=== PATIENT | female | born 1945 | race African-American/Black ===

== ENCOUNTER 2021-07-08 12:40 | Inpatient (IN) | payer MEDICARE, BC ==
[~2021-07-08] VITALS: Ht 157.5 cm; Wt 54.0 kg
--- NOTE | 2021-07-08 12:48 | NUR ---
The patient is bibra99 frm home, found by sister lethargic w noted empty ambien bottle. The patient verbalizes SI, w/ previous attempt. The patient denies HI. In room air and denies SOB. Respiration regular and unlabored. Attached to the monitor. Sitter at the bedside. Will continue to monitor the patient.
[2021-07-08] MEDS ORDERED: IV NS 0.9% 1,000 ML BAG IV ONE (13:00)
[2021-07-08] MEDS ORDERED: EZET10TA32 PO (13:32)
[2021-07-08] MEDS ORDERED: AZEL137S7 (13:32)
[2021-07-08] MEDS ORDERED: TRAZ-182 PO (13:32)
[2021-07-08] MEDS ORDERED: DENO60DI PO (13:32)
[2021-07-08] MEDS ORDERED: HYDR-3976 PO (13:32)
[2021-07-08] MEDS ORDERED: MIRT-121 PO (13:32)
[2021-07-08] MEDS ORDERED: ZOLP5TAB2 PO (13:32)
[2021-07-08] MEDS ORDERED: QUET25TA PO (13:32)
[2021-07-08] MEDS ORDERED: GABA-532 PO (13:32)
[2021-07-08] MEDS ORDERED: ZOLP10TA2 PO (13:32)
[2021-07-08] MEDS ORDERED: METO25TA4 PO (13:32)
[2021-07-08] MEDS ORDERED: ALPR0.5T8 PO (13:32)
[2021-07-08] MEDS ORDERED: MECL-159 PO (13:32)
[2021-07-08 13:44] LABS: BASOPHILS % (AUTO) 0.4 % (0.0-2.0); EOSINOPHILS % (AUTO) 0.1 % (0.0-6.0); HEMATOCRIT 37 % (33-45); HEMOGLOBIN 12.4 g/dL (11.5-14.8); LYMPHOCYTES # (AUTO) 0.9 K/uL (0.8-4.8); MEAN CORPUSCULAR HGB CONC 34 g/dl (31.0-36.0); MEAN CORPUSCULAR VOLUME 90 fL (82-100); MONOCYTES # (AUTO) 0.4 K/uL (0.1-1.30); MONOCYTES % (AUTO) 5.7 % (2.0-12.0); NEUTROPHILS # (AUTO) 5.4 K/uL (1.8-8.9); NEUTROPHILS % (AUTO) 79.8 % (43.0-81.0); PLATELET COUNT (AUTO) 257 K/uL (150-450); RED BLOOD CELL COUNT(AUTO) 4.07 MIL/uL (4.0-5.2); WHITE BLOOD COUNT (AUTO) 6.8 K/uL (4.3-11.0)
--- NOTE | 2021-07-08 14:16 | NUR ---
CONTACTED POISON CONTROLL. SPOKE TO ELYSIA. HIS RECOMMENDATION IS SUPPORTIVE CARE, LOTS OF FLUIDS, MONITOR 4-6 HOURS, MONITOR RESPITARION, INTUBATE IF NEEDED. RUN LABS FOR ALCOHOL, TYLENOL.
[2021-07-08 14:43] LABS: CALCIUM, SERUM 8.7 mg/dL (8.5-10.1); CARBON DIOXIDE 26 mmol/L (21-32); CHLORIDE 108 mmol/L (98-107); CREATININE 1.2 mg/dL (0.6-1.3); GLUCOSE 108 mg/dL (74-106); POTASSIUM 4.4 mmol/L (3.5-5.1); SODIUM SERUM 140 mmol/L (136-145); UREA NITROGEN, BLOOD 24 mg/dL (7-18)
[2021-07-08 14:49] LABS: ACETAMINOPHEN 2 ug/ml (10-30); ALANINE AMINOTRANSFERASE 36 U/L (12-78); ALBUMIN 2.8 g/dL (3.4-5.0); ALKALINE PHOSPHATASE 95 U/L (46-116); ASPARTATE AMINOTRANSFERASE 18 U/L (15-37); BILIRUBIN,DIRECT 0.1 mg/dL (0.0-0.2); BILIRUBIN,TOTAL 0.5 mg/dL (0.2-1.0); TOTAL PROTEIN, SERUM 5.6 g/dL (6.4-8.2)
[2021-07-08 14:55] LABS: ALCOHOL, BLOOD < 3 mg/dL (0-0)
--- NOTE | 2021-07-08 18:15 | NUR ---
THE PATIENT HANDED HER SILVER COLOR WATCH, SILVER COLOR BRACELET AND SILVER COLOR 2 RINGS TO HER DAUGHTER OSMAN. THE DAUGHTER OSMAN HANDED TO THE PATIENT THE PATIENT`S IPHONE.
[2021-07-08] MEDS ORDERED: IV NS 0.9% 1,000 ML IV ONE (19:00)
--- NOTE | 2021-07-08 22:32 | NUR ---
CALLED [facility] FOR PSYCH EVAL. PT AWAKE, ALERT AND RESPONSIVE AT THIS TIME
--- NOTE | 2021-07-09 00:04 | NUR ---
PT PLACED OF 5151 HOLD FOR DTS / SI BY SALTY [facility] MAINTENANCE WELDER /ROLLER SKATE ASSEMBLER 07/09/20 0004. ATTEMPT TO SI BY TAKING BOTTLE OF ATIVAN
--- NOTE | 2021-07-09 00:18 | NUR ---
COVID ANTIGEN SWAB COLLECTED AND SENT TO LAB
--- NOTE | 2021-07-09 01:16 | NUR ---
REPORT GIVEN TO [facility] GPS RN FOR MAYRA
--- NOTE | 2021-07-09 01:35 | NUR ---
IV removed. Catheter intact and site benign. Pressure and 4x4 applied to site. No bleeding noted.
--- NOTE | 2021-07-09 01:42 | NUR ---
PT TRANSFERRED TO GPS VIA HOSPITAL PROTOCOL. ALL BELONGINGS WITH PT. VSS. MRSA SWAB COLLECTED AND SENT TO LAB
[2021-07-09] MEDS ORDERED: MAG HYDROX/AL HYDROX/SIMETH 30 ML UDC PO PRN (03:00)
[2021-07-09] MEDS ORDERED: BLOOD SUGAR DIAGNOSTIC 1 EACH STRIP IN ONE (03:00)
[2021-07-09] MEDS ORDERED: MAGNESIUM HYDROXIDE 30 ML UDC PO PRN (03:00)
--- NOTE | 2021-07-09 04:14 | NUR ---
GPS RN NOTES: Patient arrived this unit via w/c with an ER escort. Patient is originally from home. Patient is on a 5150 hold for DTS, hold placed on 07/09/21 @ 0004. Per hold, Patient Presented to the ER for reported overdose. The patient reportedly got a refill on Ambien 3 days ago. Patient's sister found her very sleepy and lethargic but arousable with empty Ambien bottle next to her. The Patient admits she took the bottle in an attempt to kill herself because shes depressed and very anxious with palpitations. Upon face to face evaluation, Patient is awake, alert and oriented x3, appears depressed, labile, cooperative but easily irritable, needy, ambulatory. No s/s symptoms of distress. Patient denies any pain at this time. BS94. Patient signed all admission paperwork, skin check done pictures taken and placed in Patient chart. Dietary consult done d/t Patient report that she has lost 9lbs in one month. Per Patient, she has received her flu shot this season and is fully vaccinated but refused Pneumonia shot when offered. Patient is under the Psychiatric care of Dr Uribe and Medical care of Edgardo Bautista. Patient handbook and prescription medication guide given to Patient. Patient oriented to unit and Staff. Fluid and snacks offered as tolerated. Bed is in low position and locked, side rails up x2 for safety. Will continue to monitor Q15min for mood, safety and behavior.
[2021-07-09] MEDS ORDERED: HYDROCODONE/APAP 7.5/325MG 1 EACH TABLET PO PRN (05:30)
[2021-07-09] MEDS ORDERED: MECLIZINE HCL 25 MG TABLET PO PRN (05:30)
[2021-07-09] MEDS ORDERED: HYDROCODONE/APAP 5/325MG TABLET PO PRN (07:30)
[2021-07-09] MEDS: EZETIMIBE 10 MG TABLET PO SCH (08:56)
[2021-07-09] MEDS: METOPROLOL SUCCINATE 25 MG TAB.SR.24H PO SCH (08:56)
[2021-07-09] MEDS: AZELASTINE NASAL SPRAY 30 ML BOTTLE NS SCH ×2 (08:59→17:28)
--- NOTE | 2021-07-09 09:19 | NUR ---
LIDIA Initial Discharge Plan: [facility] [place] [address] ([phone]). Patient would want to return back home upon discharge. LIDIA will coordinate with family, patient, and MD for appropriate discharge.
--- NOTE | 2021-07-09 09:19 | NUR ---
LIDIA Admit Source: Patient was in the ER with failed suicide attempt brought in by family. Patient overdosed on 30 pills of Ambien. Patient lives at home with son and daughter in law. Patient's daughter Rosamaria ([phone]) brought the pt to the ER. Patient is placed on 5150 hold for danger to herself and admitted in the psych unit. Patient currently resides at [address] [place] [address] ([phone]). Patient would want to return back home upon discharge.
--- NOTE | 2021-07-09 09:22 | NUR ---
Social Work Note/Substance Abuse Intervention: Patient was provided with a brief substance abuse intervention and referred to [facility] ([phone]), [facility] ([phone]), and [facility] ([phone]) for overdosing on medications.
[2021-07-09] MEDS: ESCITALOPRAM OXALATE (10 MG) 10 MG TABLET PO SCH (09:29)
--- NOTE | 2021-07-09 09:41 | NUR ---
LIDIA Family Contact: LIDIA spoke with patient's daughter Rosamaria ([phone]) and discussed treatment/discharge plan. Rosamaria stated that upon discharge pt will return back home with son or Rosamaria will be taking pt to her house. Rosamaria reported needing assistance at home. LIDIA offered Home Health services and she was agreeable with this. LIDIA will coordinate upon dc.
--- NOTE | 2021-07-09 09:42 | NUR ---
LIDIA Coordination of Care: SW sent clinicals to [facility] ([phone]) for home health services. Admin stated they will review and will follow up with this SW.
--- NOTE | 2021-07-09 10:00 | NUR ---
RN-NOTES PATIENT AGREED TO GIVE HER CELLPHONE BACK TO HER DTR OSMAN .
--- NOTE | 2021-07-09 10:32 | NUR ---
RN-NOTES PATIENT BACK IN THE UNIT , A/OX4 NO ACUTE DISTRESS NOTED. AMBULATORY STEADY GAIT.
[2021-07-09] MEDS: LORAZEPAM 0.5 MG TABLET PO PRN (11:02)
--- NOTE | 2021-07-09 11:03 | NUR ---
RN-CO: ATIVAN 0.5 MG PO GIVEN FOR C/O ANXIETY.
--- NOTE | 2021-07-09 12:05 | NUR ---
RN-NOTES PATIENT LYING IN HER BED INTERACTING WITH HER ROOM MATE,CALM,NO ACUTE DISTRESS NOTED.
[2021-07-09] MEDS: ENSURE ENLIVE 237 ML LIQUID (VANILLA) PO SCH ×2 (13:46→17:27)
[2021-07-09] MEDS ORDERED: DIPHENOXYLATE HCL/ATROP SULF 1 UDTAB TABLET PO PRN (15:00)
[2021-07-09] MEDS ORDERED: ONDANSETRON 4 MG TAB.RAPDIS SL PRN (15:00)
[2021-07-09 15:52] VITALS: BP 130/72
[2021-07-09] MEDS ORDERED: ENSURE ENLIVE 237 ML LIQUID (VANILLA) PO SCH (17:00)
[2021-07-09 20:00] VITALS: BP 127/69
[2021-07-09] MEDS: MIRTAZAPINE 15 MG TABLET PO SCH (21:55)
[2021-07-10 07:11] LABS: CHOLESTEROL 240 mg/dL (<200); HDL CHOLESTEROL 79 mg/dL (40-60); LDL 134 mg/dL (0-99); TRIGLYCERIDES 146 mg/dL (30-150)
[2021-07-10 07:20] LABS: ALBUMIN 3.1 g/dL (3.4-5.0); BILIRUBIN,TOTAL 0.5 mg/dL (0.2-1.0); CALCIUM, SERUM 9.1 mg/dL (8.5-10.1); POTASSIUM 3.7 mmol/L (3.5-5.1); TOTAL PROTEIN, SERUM 6.3 g/dL (6.4-8.2)
[2021-07-10] MEDS: ENSURE ENLIVE 237 ML LIQUID (VANILLA) PO SCH ×3 (08:25→17:10)
[2021-07-10] MEDS: EZETIMIBE 10 MG TABLET PO SCH (08:25)
[2021-07-10] MEDS: METOPROLOL SUCCINATE 25 MG TAB.SR.24H PO SCH (08:25)
[2021-07-10] MEDS: ESCITALOPRAM OXALATE (10 MG) 10 MG TABLET PO SCH (08:25)
[2021-07-10] MEDS: AZELASTINE NASAL SPRAY 30 ML BOTTLE NS SCH ×2 (08:26→17:09)
[2021-07-10 09:19] VITALS: BP 144/76
--- NOTE | 2021-07-10 12:06 | NUR ---
Rn-notes Patient c/o indigestion. Maalox 30ml given as PRN order.
--- NOTE | 2021-07-10 12:20 | NUR ---
LIDIA Coordination of Care: LIDIA sent clinicals to [facility] ([phone]) for home health services and stated they will accept pt and will need to be notified upon dc to send a nurse.
--- NOTE | 2021-07-10 12:30 | NUR ---
RN-NOTES PATIENT CLAIMED MAALOX HELP WITH HER INDIGESTION.
--- NOTE | 2021-07-10 14:27 | NUR ---
LIDIA Family Contact: LIDIA received a call from Rosamaria ([phone]) wanted update on pt's status. LIDIA shared pt's current status and notified that pt is set up for Home Health services. Rosamaria requested to speak to the doctor. LIDIA notified DARIEN Manzanares and Dr. Au.
[2021-07-10 16:00] VITALS: BP 142/86
[2021-07-10 20:00] VITALS: BP 139/71
[2021-07-10] MEDS: ACETAMINOPHEN 325 MG TABLET PO PRN (21:37)
[2021-07-10] MEDS: MIRTAZAPINE 15 MG TABLET PO SCH (21:37)
[2021-07-10] MEDS: TEMAZEPAM 7.5 MG CAPSULE PO PRN (22:22)
--- NOTE | 2021-07-10 22:22 | NUR ---
GPS RN NOTES: INSOMNIA PATIENT C/O INABILITY TO SLEEP. PRN RESTORIL 7.5MG PO GIVEN. WILL CONTINUE TO MONITOR.
[2021-07-11] MEDS: LORAZEPAM 0.5 MG TABLET PO PRN (00:18)
--- NOTE | 2021-07-11 00:18 | NUR ---
GPS RN NOTES: ANXIETY PATIENT C/O FEELING ANXIOUS AND REQUESTING FOR ATIVAN. PRN ATIVAN 0.5MG PO GIVEN. WILL CONTINUE TO MONITOR FOR PT'S SAFETY.
[2021-07-11 08:00] VITALS: BP 128/86
[2021-07-11] MEDS: ESCITALOPRAM OXALATE (10 MG) 10 MG TABLET PO SCH (08:21)
[2021-07-11] MEDS: ENSURE ENLIVE 237 ML LIQUID (VANILLA) PO SCH ×3 (08:21→16:45)
[2021-07-11] MEDS: EZETIMIBE 10 MG TABLET PO SCH (08:21)
[2021-07-11] MEDS: METOPROLOL SUCCINATE 25 MG TAB.SR.24H PO SCH (08:22)
[2021-07-11] MEDS: AZELASTINE NASAL SPRAY 30 ML BOTTLE NS SCH ×2 (08:24→16:42)
[2021-07-11 16:00] VITALS: BP 123/64
[2021-07-11 21:54] VITALS: BP 108/62
[2021-07-11] MEDS: MIRTAZAPINE 15 MG TABLET PO SCH (21:56)
[2021-07-11] MEDS: TEMAZEPAM 7.5 MG CAPSULE PO PRN (23:10)
[2021-07-11] MEDS: ACETAMINOPHEN 325 MG TABLET PO PRN (23:11)
--- NOTE | 2021-07-11 23:20 | NUR ---
GPS NURSING NOTES: PT REQUESTING SLEEPING MEDICATION FOR COMPLAINS OF INSOMNIA AND 5/10 HEADACHE. PT WAS ENCOURAGE TO DO DEEP BREATHING EXERCISES FOR RELAXATION AND GIVEN RESTORIL 7.5MG FOR SLEEP AND TYLENOL 650MG PO FOR HEADACHE. WILL RE-ASSESS THE EFFECTIVENESS OF MEDICATION GIVEN WELL MONITOR PT FOR ANY CHANGES IN CURRENT CONDITION THROUGHOUT MY SHIFT.
[2021-07-12] MEDS: LORAZEPAM 0.5 MG TABLET PO PRN (01:25)
--- NOTE | 2021-07-12 01:26 | NUR ---
GPS RN NOTES: PT C/O FEELING ANXIOUS AND UNABLE TO SLEEP REQUESTING ATIVAN IT HAD WORKED PREVIOUSLY FOR PT. PT GIVEN ATIVAN 0.5 MG PER ORDER. WILL RE-ASSESS MEDICATION GIVEN EFFECTIVENESS AND CONTINUE TO MONITOR PT FOR ANY CHANGES IN CURRENT CONDITION THROUGHOUT MY SHIFT.
[2021-07-12] MEDS: ENSURE ENLIVE 237 ML LIQUID (VANILLA) PO SCH ×3 (08:54→17:20)
[2021-07-12] MEDS: AZELASTINE NASAL SPRAY 30 ML BOTTLE NS SCH ×2 (08:58→17:20)
[2021-07-12] MEDS: EZETIMIBE 10 MG TABLET PO SCH (09:15)
[2021-07-12] MEDS: ESCITALOPRAM OXALATE (10 MG) 10 MG TABLET PO SCH (09:15)
[2021-07-12] MEDS: METOPROLOL SUCCINATE 25 MG TAB.SR.24H PO SCH (09:16)
[2021-07-12] MEDS: MIRTAZAPINE 15 MG TABLET PO SCH (21:54)
[2021-07-12] MEDS: TEMAZEPAM 7.5 MG CAPSULE PO PRN (21:54)
--- NOTE | 2021-07-12 22:00 | NUR ---
GPS RN NOTE PT REQUESTING FOR SLEEPINGH MED, RESTORIL 7.5 MG PO GIVEN. CONTINUE TO MONITOR
--- NOTE | 2021-07-12 23:00 | NUR ---
GPS RN NOTE PT FALL BACK TO SLEEP.
--- NOTE | 2021-07-13 01:00 | NUR ---
GPS RN NOTE PT IN BED AWAKE. AND BECOME ANXIOUS. ATIVEN 0.5 MG PO GIVEN FOR ANXIETY.
[2021-07-13] MEDS: LORAZEPAM 0.5 MG TABLET PO PRN ×2 (01:03→23:07)
--- NOTE | 2021-07-13 02:00 | NUR ---
GPS RN NOTE ANXIETY SUBSIDED. PT FALL BACK TO SLEEP.
[2021-07-13 08:00] VITALS: BP 116/78
[2021-07-13] MEDS: ENSURE ENLIVE 237 ML LIQUID (VANILLA) PO SCH ×3 (08:52→17:54)
[2021-07-13] MEDS: AZELASTINE NASAL SPRAY 30 ML BOTTLE NS SCH ×2 (08:55→17:54)
[2021-07-13] MEDS: ESCITALOPRAM OXALATE (10 MG) 10 MG TABLET PO SCH (08:57)
[2021-07-13] MEDS: EZETIMIBE 10 MG TABLET PO SCH (08:57)
[2021-07-13] MEDS: METOPROLOL SUCCINATE 25 MG TAB.SR.24H PO SCH (09:00)
[2021-07-13 17:15] VITALS: BP 111/74
[2021-07-13 19:46] VITALS: BP 126/62
[2021-07-13] MEDS: MIRTAZAPINE 15 MG TABLET PO SCH (21:05)
[2021-07-13] MEDS: TEMAZEPAM 7.5 MG CAPSULE PO PRN (22:04)
[2021-07-14 08:00] VITALS: BP 113/66
[2021-07-14] MEDS: ENSURE ENLIVE 237 ML LIQUID (VANILLA) PO SCH ×3 (08:53→16:00)
[2021-07-14] MEDS: EZETIMIBE 10 MG TABLET PO SCH (08:56)
[2021-07-14] MEDS: METOPROLOL SUCCINATE 25 MG TAB.SR.24H PO SCH (08:56)
[2021-07-14] MEDS: ESCITALOPRAM OXALATE (10 MG) 10 MG TABLET PO SCH (08:56)
[2021-07-14] MEDS: AZELASTINE NASAL SPRAY 30 ML BOTTLE NS SCH ×2 (08:58→16:00)
--- NOTE | 2021-07-14 10:02 | NUR ---
Court Hearing: Patient's court hearing for 5250 was today and it was upheld for GD and danger to self.
--- NOTE | 2021-07-14 11:20 | NUR ---
LIDIA Family Contact: LIDIA spoke with patient's daughter Rosamaria ([phone]) and wanted to discuss pt's discharge day. She would want a 24hr notification of when pt discharges.
[2021-07-14] MEDS: LORAZEPAM 0.5 MG TABLET PO PRN (12:41)
--- NOTE | 2021-07-14 12:41 | NUR ---
PT ANXIOUS. ATIVaN 0.5 MG PO GIVEN FOR ANXIETY.
[2021-07-14 16:00] VITALS: BP 116/54
[2021-07-14 19:40] VITALS: BP 100/62
[2021-07-14 20:00] VITALS: BP 100/62
[2021-07-14] MEDS: MIRTAZAPINE 15 MG TABLET PO SCH (21:23)
[2021-07-14] MEDS: TEMAZEPAM 7.5 MG CAPSULE PO PRN (22:05)
--- NOTE | 2021-07-14 22:07 | NUR ---
GPS RN NOTE: INSOMNIA PATIENT C/O INABILITY TO SLEEP AND REQUESTED TO TAKE SLEEPING MEDICINE AT THIS TIME. PRN RESTORIL 7.5 MG 1 CAP PO ADMINISTERED. WILL CONTINUE TO MONITOR.
[2021-07-15] MEDS: LORAZEPAM 0.5 MG TABLET PO PRN ×2 (01:45→09:42)
--- NOTE | 2021-07-15 01:47 | NUR ---
GPS RN NOTE: ANXIETY PATIENT VERBALIZED BEING RESTLESS AND ANXIOUS. PATIENT REQUESTED TO TAKE ATIVAN AT THIS TIME. PRN ATIVAN 0.5 MG PO ADMINISTERED. WILL CONTINUE TO MONITOR.
[2021-07-15] MEDS: ENSURE ENLIVE 237 ML LIQUID (VANILLA) PO SCH ×3 (07:34→16:44)
[2021-07-15 08:00] VITALS: BP 102/62
[2021-07-15] MEDS: ESCITALOPRAM OXALATE (10 MG) 10 MG TABLET PO SCH (08:22)
[2021-07-15] MEDS: EZETIMIBE 10 MG TABLET PO SCH (08:22)
[2021-07-15] MEDS: METOPROLOL SUCCINATE 25 MG TAB.SR.24H PO SCH (08:22)
[2021-07-15] MEDS: AZELASTINE NASAL SPRAY 30 ML BOTTLE NS SCH ×2 (08:22→16:44)
--- NOTE | 2021-07-15 09:43 | NUR ---
PATIENT VERBALIZED BEING RESTLESS AND ANXIOUS. PATIENT REQUESTED TO TAKE ATIVAN AT THIS TIME. PRN ATIVAN 0.5 MG PO ADMINISTERED. WILL CONTINUE TO MONITOR.
--- NOTE | 2021-07-15 10:09 | NUR ---
LIDIA Family Contact: LIDIA spoke with patient's daughter Rosamaria ([phone]) who stated that she is looking into [facility] but stated it will cost her about 40k and is unsure about the facility. LIDIA gave Rosamaria caregiving resources such as [facility] ([phone]) and stated that this card writer hand set her up with Home Health Services through [facility] ([phone]).
--- NOTE | 2021-07-15 13:19 | NUR ---
LIDIA Family Contact: LIDIA spoke with patient's daughter Rosamaria ([phone]) who stated she found the pt a place called [address] [place] [address] ([phone]). She reported that she would want to take pt back home before she goes to this center.
[2021-07-15 16:00] VITALS: BP 120/64
[2021-07-15 19:58] VITALS: BP 108/62
[2021-07-15] MEDS: MIRTAZAPINE 15 MG TABLET PO SCH (21:14)
[2021-07-15] MEDS: TEMAZEPAM 7.5 MG CAPSULE PO PRN (22:02)
[2021-07-16 08:00] VITALS: BP 130/68
[2021-07-16] MEDS: EZETIMIBE 10 MG TABLET PO SCH (08:31)
[2021-07-16] MEDS: ENSURE ENLIVE 237 ML LIQUID (VANILLA) PO SCH ×3 (08:31→17:22)
[2021-07-16] MEDS: AZELASTINE NASAL SPRAY 30 ML BOTTLE NS SCH ×2 (08:32→17:22)
[2021-07-16] MEDS: METOPROLOL SUCCINATE 25 MG TAB.SR.24H PO SCH (08:32)
[2021-07-16] MEDS: ESCITALOPRAM OXALATE (10 MG) 10 MG TABLET PO SCH (08:32)
--- NOTE | 2021-07-16 08:42 | NUR ---
Coordination of Care: Patient will follow up with (User Experience Analyst) Dr. Mily Thayer located at [address], [place] [address]: ([phone]). Patient will follow up with (Psychiatrist) Dr. Alex Alejandro located at [address] [address]; ([phone]) on July 21 at 10:30AM.
[2021-07-16] MEDS: LORAZEPAM 0.5 MG TABLET PO PRN ×2 (08:54→15:00)
--- NOTE | 2021-07-16 08:54 | NUR ---
RN-NOTES PATIENT REQUESTING ATIVAN FOR HER ANXIETY. ATIVAN 0.5MG P.O GIVEN PRN ORDER. WILL CONT. MONITORING FOR SAFETY AND BEHAVIOR.
--- NOTE | 2021-07-16 09:50 | NUR ---
RN-NOTES PATIENT LYING IN BED INTERMITTENTLY SLEEPING,EASILY AROUSED.NO ACUTE DISTRESS NOTED.
--- NOTE | 2021-07-16 15:01 | NUR ---
RN-NOTES PATIENT REQUESTING ATIVAN . ATIVAN 0.5MG P.O GIVEN PRN ORDER. WILL CONT. MONITORING FOR SAFETY AND BEHAVIOR.
--- NOTE | 2021-07-16 16:05 | NUR ---
RN-NOTES PATIENT LYING IN BED AWAKE,ALERT,CALM NO ACUTE DISTRESS NOTED.
[2021-07-16 16:14] VITALS: BP 136/68
[2021-07-16 20:00] VITALS: BP 110/60
[2021-07-16] MEDS: MIRTAZAPINE 15 MG TABLET PO SCH (21:11)
[2021-07-16] MEDS: TEMAZEPAM 7.5 MG CAPSULE PO PRN (22:18)
--- NOTE | 2021-07-16 22:18 | NUR ---
GPS RN NOTES: INSOMNIA PATIENT C/O INABILITY TO SLEEP. RESTORIL 7.5MG PO GIVEN PRN ORDER. WILL CONTINUE TO MONITOR.
[2021-07-17] MEDS: LORAZEPAM 0.5 MG TABLET PO PRN ×2 (00:07→09:00)
--- NOTE | 2021-07-17 00:07 | NUR ---
GPS RN NOTE, PATIENT HAS A COMPLAINT OF FEELING ANXIOUS AND IS REQUESTING ATIVAN AT THIS TIME. PATIENT VITAL SIGNS ARE STABLE. GAVE ATIVAN 0.5MG PO Q6HR PRN ORDERED. WILL REASSESS FOR ANXIETY AND I WILL CONTINUE TO MONITOR THIS PATIENT WITH THE HELP OF STAFF.
[2021-07-17 08:00] VITALS: BP 132/62
[2021-07-17 08:11] VITALS: BP 132/62
[2021-07-17] MEDS: EZETIMIBE 10 MG TABLET PO SCH (08:11)
[2021-07-17] MEDS: METOPROLOL SUCCINATE 25 MG TAB.SR.24H PO SCH (08:11)
[2021-07-17] MEDS: ENSURE ENLIVE 237 ML LIQUID (VANILLA) PO SCH (08:11)
[2021-07-17] MEDS: ESCITALOPRAM OXALATE (10 MG) 10 MG TABLET PO SCH (08:11)
[2021-07-17] MEDS: AZELASTINE NASAL SPRAY 30 ML BOTTLE NS SCH (08:12)
--- NOTE | 2021-07-17 08:17 | NUR ---
SW Discharge Note: Patient will return back home located at [address], [place] [address]; ([phone]). Patients daughter Rosamaria ([phone]) will cherry picker operator pt at 11AM. Patient is alert and oriented x4. Patient denies suicidal or homicidal ideation. Patient denies visual/auditory hallucinations. Patient was provided with resources to [facility] ([phone]), [facility] ([phone]), and [facility] ([phone]) for alcohol abuse for overdosing on medications. Patient will follow up with (Sheep Shearer) Dr. Mily Thayer located at [address], [place] [address]: ([phone]). Patient will follow up with (Psychiatrist) Dr. Alex Alejandro located at [address] [address], [place] [address]; ([phone]) on July 21 at 10:30AM. SW sent patient up with [facility] was arranged (P:[phone], F: [phone]) for medication management, physical therapy, and nursing follow ups they will follow up with pt. for intake evaluation. Patients daughter stated she found a treatment center for pt called [facility]; ([phone]) and stated that she will go here in the next couple of days. Patient presents with euthymic mood and congruent affect.
--- NOTE | 2021-07-17 09:01 | NUR ---
RN-NOTES PATIENT REQUESTING ATIVAN FOR HER ANXIETY. ATIVAN 0.5MG P.O GIVEN PRN ORDER. WILL CONT. MONITORING FOR SAFETY AND BEHAVIOR.
--- NOTE | 2021-07-17 10:05 | NUR ---
RN-NOTES PATIENT LYING IN BED AWAKE,ALERT,CALM NO ACUTE DISTRESS NOTED.
--- NOTE | 2021-07-17 11:00 | NUR ---
RN-DISCHARGE NOTES PATIENT HAD A DISCHARGE ORDER FROM JEWEL HARDIN COVERING FOR DR. MARTÍNEZ (PSYCHIATRIST). DR. MTZ MEDICALLY CLEARED PATIENT FOR DISCHARGE ( CASH ROOM CLERK). PATIENT LEFT THE UNIT IN STABLE CONDITION ,A/O X4,NO ACUTE DISTRESS NOTED. AMBULATORY WITH STEADY GAIT. PATIENT DID NOT VERBALIZE SI/HI,DENIES VISUAL/AUDITORY HALLUCINATIONS AT THE TIME OF DISCHARGE. PATIENT WAS DISCHARGE WITH ALL HER BELONGINGS .FILLING WINDER INSTRUCTED PATIENT TO CALL 911 OR GO TO THE NEAREST ER FACILITY INCASE OF EMERGENCY. ALSO ADVICE PATIENT TO FOLLOW WITH PSYCHIATRIST AND CASH ROOM CLERK APPOINTMENT. RX WAS GIVEN TO THE PATIENT AND WAS ENDORSE TO HER DTR OSMAN WHO PICK HER UP VIA PRIVATE CAR. PATIENT WAS ASSISTED BY THE SW IN THE LOBBY FOR SAFETY.
--- NOTE | 2021-07-22 09:18 | NUR ---
Social Work Note/Substance Abuse Follow-up: ironing worker was unable to conduct a thorough follow-up intervention. SW attempted to contact pt's daughter Rosamaria ([phone]) number listed and this fiction and nonfiction writer prose attempted multiple times but no answer.
== END 2021-07-17 11:00 | disposition home or self-care (01) | DRG 881 ==
LOC: ER 12:45 → GPS 07-09 00:48
PROVIDERS: ADMIT Nurse Practitioner Psychiatric/Mental Health; ATTEND Nurse Practitioner Acute Care
DX: F32.9 Major depressive disorder, single episode, unspecified (principal); T42.6X2A Poisoning by other antiepileptic and sedative-hypnotic drugs, intentional self-harm, initial encounter; E78.5 Hyperlipidemia, unspecified; F29 Unspecified psychosis not due to a substance or known physiological condition; I10 Essential (primary) hypertension; F41.0 Panic disorder [episodic paroxysmal anxiety]; F41.9 Anxiety disorder, unspecified; Z20.822 Contact with and (suspected) exposure to COVID-19; Y92.009 Unspecified place in unspecified non-institutional (private) residence as the place of occurrence of the external cause; Z63.9 Problem related to primary support group, unspecified
CPT/HCPCS: 36415; 80048-TC; 80053-TC; 80061-TC; 80076-TC; 82962-TC; 85025-TC; G0480; J7030